=== PATIENT | male | born 1985 | race Caucasian/White ===

== ENCOUNTER 2018-02-07 | Emergency (ER) | payer SELFPAY ==
--- NOTE | 2018-02-07 09:19 | ER ---
Nurse's Notes [facility] Name: Moses Cheatham Age: 32 yrs Sex: Male : 1985 Arrival Date: 02/07/2018 Time: 08:18 Bed 14 Private MD: Diagnosis: Nail disorder, unspecified Presentation: 02/07 08:19 Presenting complaint: Patient states: last night, i got out of the shower and i felt hj pain on my R big toe, it was swollen too; denies trauma to the area; reports numbness and tingling on the big toe going up to the R foot; denies fever and chills;. Transition of care: patient was not received from another setting of care. Onset of symptoms was February 07, 2018. Care prior to arrival: None. 08:19 Method Of Arrival: Ambulatory 08:19 Acuity: KAMI 4 hj Triage Assessment: 08:22 General: Appears in no apparent distress. uncomfortable, obese, Behavior is calm, hj cooperative, appropriate for age. Pain: Complains of pain in right first toe and Right first toenail Pain currently is 8 out of 10 on a pain scale. Quality of pain is described as aching. Historical: - Allergies: 08:22 No Known Allergies; hj - Home Meds: 08:22 None [Active]; hj - PMHx: 08:22 None; hj - PSHx: 08:22 None; hj - Immunization history:: Adult Immunizations not up to date, Last tetanus immunization: unknown, Flu vaccine is not up to date. - Social history:: Smoking status: Patient/guardian denies using tobacco, never smoked, Patient/guardian denies using alcohol. Screenin:34 Abuse screen: Denies threats or abuse. Denies injuries from another. Nutritional jtb screening: No deficits noted. Tuberculosis screening: No symptoms or risk factors identified. Fall Risk None identified. Assessment: 08:34 General: Appears in no apparent distress. uncomfortable, Behavior is calm, cooperative, jtb appropriate for age. Pain: Complains of pain in right first toe and Right first toenail Pain does not radiate. Pain currently is 5 out of 10 on a pain scale. at worst was 10 out of 10 on a pain scale. Quality of pain is described as sharp, throbbing, Pain began last night Is continuous. Neuro: Level of Consciousness is awake, alert, obeys commands, Oriented to person, place, time, situation. Cardiovascular: Patient's skin is warm and dry. Respiratory: Airway is patent Respiratory effort is even, unlabored, Respiratory pattern is regular, symmetrical. GI: No signs and/or symptoms were reported involving the gastrointestinal system. : No signs and/or symptoms were reported regarding the genitourinary system. EENT: No signs and/or symptoms were reported regarding the EENT system. Derm: Skin is intact, Skin is pink, warm \T\ dry. Musculoskeletal: Range of motion: limited in right first toe Reports numbness in right first toe and Right first toenail since This morning.. 09:09 Reassessment: No changes from previously documented assessment. Patient and/or family jtb updated on plan of care and expected duration. Pain level reassessed. Patient is alert, oriented x 3, equal unlabored respirations, skin warm/dry/pink. Vital Signs: 08:23 BP 113 / 65; Pulse 77; Resp 18; Temp 97.5(TE); Pulse Ox 98% on R/A; Weight 108.86 kg; hj Height 5 ft. 6 in. (167.64 cm); Pain 8/10; 09:09 BP 102 / 66; Pulse 81; Resp 16 S; Pulse Ox 98% on R/A; Pain 7/10; jtb 08:23 Body Mass Index 38.74 (108.86 kg, 167.64 cm) ED Course: 08:18 Patient arrived in ED. mr 08:22 Triage completed. 08:23 Arm band placed on left wrist. 08:34 Patient has correct armband on for positive identification. Bed in low position. Call jtb light in reach. Side rails up X 1. Pulse ox on. NIBP on. 08:38 Cindi Monroy MD is Attending Physician. ma2 09:31 Jocelyne Noel RN is Primary Nurse. jl7 09:38 No provider procedures requiring assistance completed. Patient did not have IV access jl7 during this emergency room visit. Administered Medications: No medications were administered Outcome: 09:19 Discharge ordered by . ma2 09:38 Attestation : I agree with everything documented by Rios Cardenas, Student Nurse. jl7 09:38 Discharged to home ambulatory. 09:38 Condition: stable 09:38 Discharge instructions given to patient, Instructed on discharge instructions, follow up and referral plans. medication usage, Demonstrated understanding of instructions, follow-up care, medications, Prescriptions given X 2. 09:39 Patient left the ED. Signatures: Angi Herrera mr PatelYou, RN RN hj Jocelyne Noel RN RN jl7 Cindi Monroy MD MD ma2 Rios Cardenas jtb Corrections: (The following items were deleted from the chart) 08:24 08:23 Pulse 77bpm; Resp 18bpm; Pulse Ox 98% RA; Temp 97.5F Temporal; 108.86 kg; Height hj 5 ft. 6 in.; BMI: 38.7; Pain 8/10; hj 08:50 08:34 Musculoskeletal: Reports numbness in right first toe and Right first toenail jtb since This morning.. jtb
--- NOTE | 2018-02-07 09:19 | EDPHYS ---
Physician Documentation [facility] Name: Moses Cheatham Age: 32 yrs Sex: Male : 1985 Arrival Date: 02/07/2018 Time: 08:18 Bed 14 Private MD: ED Physician Cindi Monroy HPI: 02/07 09:14 This 32 yrs old Male presents to ER via Ambulatory with complaints of Toe ma2 Pain. 09:14 The patient presents with pain, that is acute. The complaints affect the right foot. ma2 Context: Mechanism of Injury:. Onset: The symptoms/episode began/occurred gradually, 1 day(s) ago. Associated signs and symptoms: Pertinent negatives: calf tenderness, nausea, numbness, swelling, tingling, warmth, weakness. q day of pain and redness around nail of right great toe no other symptom, no trauma . Historical: - Allergies: 08:22 No Known Allergies; hj - Home Meds: 08:22 None [Active]; hj - PMHx: 08:22 None; hj - PSHx: 08:22 None; hj - Immunization history:: Adult Immunizations not up to date, Last tetanus immunization: unknown, Flu vaccine is not up to date. - Social history:: Smoking status: Patient/guardian denies using tobacco, never smoked, Patient/guardian denies using alcohol. ROS: 09:14 Constitutional: Negative for fever, chills, and weight loss, Eyes: Negative for injury, ma2 pain, redness, and discharge, ENT: Negative for injury, pain, and discharge, Cardiovascular: Negative for chest pain, palpitations, and edema, Respiratory: Negative for shortness of breath, cough, wheezing, and pleuritic chest pain, Abdomen/GI: Negative for abdominal pain, nausea, diarrhea, and constipation, : Negative for injury, bleeding, discharge, and swelling, Skin: Negative for injury, rash, and discoloration, Neuro: Negative for headache, weakness, numbness, tingling, and seizure, Allergy/Immunology: Negative for hives, rash, and allergies, Endocrine: Negative for neck swelling, polydipsia, polyuria, polyphagia, and marked weight changes, Hematologic/Lymphatic: Negative for swollen nodes, abnormal bleeding, and unusual bruising. Exam: 09:14 Constitutional: This is a well developed, well nourished patient who is awake, alert, ma2 and in no acute distress. Head/Face: Normocephalic, atraumatic. Eyes: Pupils equal round and reactive to light, extra-ocular motions intact. Lids and lashes normal. Conjunctiva and sclera are non-icteric and not injected. Cornea within normal limits. Periorbital areas with no swelling, redness, or edema. Skin: Warm, dry with normal turgor. Normal color with no rashes, no lesions, and no evidence of cellulitis. Neuro: Awake and alert, GCS 15, oriented to person, place, time, and situation. Cranial nerves II-XII grossly intact. Motor strength 5/5 in all extremities. Sensory grossly intact. Cerebellar exam normal. Normal gait. Psych: Awake, alert, with orientation to person, place and time. Behavior, mood, and affect are within normal limits. 09:14 Musculoskeletal/extremity: ROM: intact in all extremities, Circulation is intact in all extremities. Sensation intact. Nails: has redness and tenderness around right great toe nail no puss collection no swelling. Vital Signs: 08:23 BP 113 / 65; Pulse 77; Resp 18; Temp 97.5(TE); Pulse Ox 98% on R/A; Weight 108.86 kg; hj Height 5 ft. 6 in. (167.64 cm); Pain 8/10; 09:09 BP 102 / 66; Pulse 81; Resp 16 S; Pulse Ox 98% on R/A; Pain 7/10; jtb 08:23 Body Mass Index 38.74 (108.86 kg, 167.64 cm) hj MDM: 08:38 Patient medically screened. ma2 09:14 Differential diagnosis: mild ingroing nail, no paronychia no abscess, mild no ma2 indication for any procedure. Data reviewed: vital signs, nurses notes. Counseling: I had a detailed discussion with the patient and/or guardian regarding: the historical points, exam findings, and any diagnostic results supporting the discharge/admit diagnosis, the need for outpatient follow up. Administered Medications: No medications were administered Disposition: 02/07/18 09:19 Discharged to Home. Impression: Nail disorder, unspecified. - Condition is Stable. - Discharge Instructions: Infected Ingrown Toenail. - Prescriptions for Tylenol- Codeine #3 300-30 mg Oral Tablet - take 2 tablet by ORAL route every 6 hours As needed; 30 tablet. Bactrim 400- 80 mg Oral Tablet - take 2 tablets by ORAL route 2 times per day; 21 tablet. - Medication Reconciliation Form, Thank You Letter, Antibiotic Education, Prescription Opioid Use form. - Follow up: Private Physician; When: Tomorrow; Reason: Continuance of care. - Problem is new. - Symptoms are unchanged. Signatures: You Patel RN RN Cindi Ascencio MD MD ma2 Rios Cardenas
== END 2018-02-07 09:39 | disposition home or self-care (01) ==
DX: L60.9 Nail disorder, unspecified (principal)
CPT/HCPCS: 99283